=== PATIENT | female | born 1950 | race Caucasian/White ===

== ENCOUNTER → 2021-08-23 15:01 | Outpatient (BNVA) | payer MEDICARE, OTHER, SELFPAY | PROVIDERS: PCP Internal Medicine; Visit Provider Psychiatry & Neurology Neurology | DX: G47.33 Obstructive sleep apnea (adult) (pediatric) (principal); R41.89 Other symptoms and signs involving cognitive functions and awareness; Z99.89 Dependence on other enabling machines and devices | CPT/HCPCS: 99212 ==

== ENCOUNTER → 2021-11-03 11:42 | Outpatient (BNVA) | payer MEDICARE, OTHER, SELFPAY | PROVIDERS: PCP Internal Medicine; Visit Provider Psychiatry & Neurology Neurology | DX: G47.33 Obstructive sleep apnea (adult) (pediatric) (principal); R41.89 Other symptoms and signs involving cognitive functions and awareness; Z99.89 Dependence on other enabling machines and devices | CPT/HCPCS: 99212 ==

== ENCOUNTER → 2021-12-12 13:49 | Outpatient (BNVA) | payer MEDICARE, OTHER, SELFPAY | PROVIDERS: PCP Internal Medicine; Visit Provider Psychiatry & Neurology Neurology | DX: G47.33 Obstructive sleep apnea (adult) (pediatric) (principal); R41.89 Other symptoms and signs involving cognitive functions and awareness; Z99.89 Dependence on other enabling machines and devices | CPT/HCPCS: 99212 ==

== ENCOUNTER → 2022-03-16 10:29 | Outpatient (BNVA) | payer MEDICARE, OTHER, SELFPAY | PROVIDERS: PCP Internal Medicine; Visit Provider Nurse Practitioner Family | DX: G47.33 Obstructive sleep apnea (adult) (pediatric) (principal); R41.89 Other symptoms and signs involving cognitive functions and awareness; E66.9 Obesity, unspecified | CPT/HCPCS: 99212 ==

== ENCOUNTER → 2022-06-15 11:05 | Outpatient (BNVA) | payer MEDICARE, OTHER, SELFPAY | PROVIDERS: PCP Internal Medicine; Visit Provider Nurse Practitioner Family | DX: G47.33 Obstructive sleep apnea (adult) (pediatric) (principal) | CPT/HCPCS: 99212 ==

== ENCOUNTER 2023-06-17 11:10 | Outpatient (AMB) | payer MEDICARE, OTHER, SELFPAY ==
--- NOTE | 2023-06-17 11:12 | MHC.OFFVIS ---
Intake Vital Signs 06/17/23 11:26 Height 5 ft 2 in Weight 202 lb BMI 36.9 BP 140/80 H Blood Pressure Location Lt brachial Position Sitting Pulse 68 Pulse Source Pulse Oximeter Pulse Oximetry (%) 98 Oxygen Delivery Method Room Air Intake Visit Reasons: 1yr follow up sleep Intake Note: Patient presents for 1 year F/U. Wondering if I could have knew sleep study. When waking up with this new machine my mouth is very dry. Allergies Seasonal Allergies Allergy (Severe, Verified 06/17/23 11:19) coughing,sneezing congestion HPI HPI Comments History of Present Illness Details 71 y/o female patient presents for follow up of memory loss and JC on CPAP. The CPAP compliance and therapy response (03/15/23-06/12/23) reviewed. She has [employer]. She is on APAP [id number]. The usage days 100 % and the average usage hours 7 hrs 30 min. The max pressure was 18.8 and the residual AHI was 6.8/hr. Pt reports she sleeps better with CPAP for 7-8 hrs, denies daytime sleepiness. PFS Surgical History Hx of hysterectomy Hx of left breast biopsy Family History (Updated 06/17/23 @ 11:26 by Ethel Piña CMA) Father Asthma Allergy Alzheimer disease Mother Thyroid disease HTN (hypertension) Kidney disease Brother HTN (hypertension) Thyroid disease Asthma Social History Household Members: Spouse Alcohol intake: never Patient Tobacco Use Status: Never used Tobacco Review of Systems Const All systems reviewed & are unremarkable except as noted in HPI and below Physical Exam Vital Signs: Last Vital Signs Pulse 68 06/17/23 11:26 BP 140/80 H 06/17/23 11:26 Pulse Ox 98 06/17/23 11:26 Oxygen Delivery Method Room Air 06/17/23 11:26 BMI result Body Mass Index 36.9 Const General: cooperative Nutritional Appearance: obese Orientation/consciousness: patient oriented x3 Neuro General: patient oriented x3, gait normal, tone normal, moves all extremities and no focal motor deficits Gait exam (Neuro): Normal gait present Motor exam (neuro): 5/5 motor strength present throughout Assessment & Plan Assessment & Plan (1) Obstructive sleep apnea: Code(s): G47.33 - Obstructive sleep apnea (adult) (pediatric) Plan Continue to use APAP at 5-15yoT1H as patient experiences good clinical effects, sleep quality and daytime sleepiness has improved. Stressed compliance, use CPAP nightly and more than 4 hrs. Wt reduction advised. Coding Level of Care Code Est Pt Level 3 (13751) Diagnoses Obstructive sleep apnea G47.33
[2023-06-17 11:26] VITALS: BP 140/80; PULSE 68; O2SAT 98; BMI 36.9
== END 2023-06-17 11:45 | disposition home or self-care (01) ==
PROVIDERS: Visit Provider Nurse Practitioner Family
DX: G47.33 Obstructive sleep apnea (adult) (pediatric) (principal)
CPT/HCPCS: 99213

== ENCOUNTER → 2023-06-17 11:10 | Outpatient (BNVA) | payer MEDICARE, OTHER, SELFPAY | PROVIDERS: Visit Provider Nurse Practitioner Family | DX: G47.33 Obstructive sleep apnea (adult) (pediatric) (principal) | CPT/HCPCS: 99212 ==

== ENCOUNTER 2024-07-16 11:23 | Outpatient (AMB) | payer MEDICARE, OTHER, SELFPAY ==
--- NOTE | 2024-07-16 11:34 | A.OFFVIS_ITS ---
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 Pt reports she took a trip to [facility] in mid-June, where she and her came down with URI s/s. On return home, she had urgent care eval, and was treated with course of Amoxicillin. Since, however, she has not been able to shake the cough- having overall non-productive coughing fits that caused dizziness. Now feeling pressure in her face/sinuses when she coughs. Has needed to use her prn albuterol. Unfortunately since having this URI, she is not able to use her CPAP, as it is also triggering coughing fits. She is feeling much more tired. Notes, that she typically sleeps very well with CPAP and has good daytime energy with the use. She also notes, that she has not been able to lose weight, due to chronic back pain and knee pain as well as lower extremity discomfort. Also walking on a treadmill can make her feel disoriented and ddd-oplutja-[id number] her mother has similar symptoms. She has discussed trying GLP 1 antagonist treatment whether PCP, however per patient, her PCP did not feel that the risks outweigh the benefits. 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 She stopped ropinirole many years ago, as it was not helpful. She continues to have leg cramps at night. Also notes varicose veins, bruising, sore legs, BLE swelling. Notes family h/o muscle cramps. She tries to use mustard, OTC magnesium. Tried magnesium torate 2600mg per day (? 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 CPAP compliance report, April 12, 2019 14 June 2019 09/27/2024: [employer]. Overall usage 90 9% Usage greater than 4 hours 97% APAP 5-20 cm H2O Average pressure 15.2 cm H2O Residual AHI 5 0.5 cm H2O PFSH Surgical History Hx of left breast biopsy Hx of hysterectomy Family History Father Asthma Allergy Alzheimer disease Mother Thyroid disease HTN (hypertension) Kidney disease Brother HTN (hypertension) Thyroid disease Asthma Social History Household Members: Spouse Alcohol intake: never Patient Tobacco Use Status: Never used Tobacco Physical Exam Vital Signs: Last Vital Signs Pulse 85 07/16/24 11:35 BP 122/70 07/16/24 11:35 Pulse Ox 97 07/16/24 11:35 Oxygen Delivery Method Room Air 07/16/24 11:35 Const General: cooperative and no acute distress Orientation/consciousness: patient oriented x3 Resp Effort & Inspection: normal respiratory effort and able to speak in complete sentences Neuro General: patient oriented x3 Cranial nerves: Yes CN's II-XII intact bilaterally Cognition (Neuro): normal cognition Psych Appearance: grossly normal Mental Status: mental status grossly normal Speech and movement: Normal speech and movement present Affect: normal affect Attitude: cooperative Assessment & Plan Assessment & Plan (1) Obstructive sleep apnea: Code(s): G47.33 - Obstructive sleep apnea (adult) (pediatric) Category: Medical (2) Nocturnal muscle cramps: Code(s): R25.2 - Cramp and spasm Category: Medical (3) Cognitive changes: Code(s): R41.89 - Other symptoms and signs involving cognitive functions and awareness Category: Medical Plan For JC: Patient advised to call her archives technician, to further assess her chronic cough and sinus symptoms. When she is feeling better and her respiratory symptoms have subsided, resume APAP 5-20 cmH2O nightly > 4 hours, as patient typically has had good clinical effect from use. * Clean CPAP machine and supplies routinely. * Change CPAP supplies routinely. * Use distilled water in CPAP water reservoir. * Pt to contact us or respiratory company with any questions or concerns. For leg cramps: Will request vascular consult. There is limited data specifically regarding Magnesium Taurate for use in current predominant restless leg, however in the available studies, it does seem to be well tolerated without significant adverse effect. Patient has found this beneficial for her leg cramps, thus she may resume Magnesium Taurate. Encourage patient to slowly increase physical activity, she may benefit from water aerobics or resuming her previous PT exercises. For cognition: Resume PAP therapy as able. Increase regular physical activity. Continue to engage in regular social and cognitive stimulating activities. Continue to monitor Pt to follow-up in 6-12 months or sooner prn. Orders: Referrals Vascular Surgery Referral I83.93 - Asymptomatic varicose veins of bilateral lower extremities, M79.89 - Other specified soft tissue disorders, R25.2 - Cramp and spasm Coding Level of Care Code Est Pt Level 4 (61087) Diagnoses Obstructive sleep apnea G47.33 Nocturnal muscle cramps R25.2 Cognitive changes R41.89
[2024-07-16 11:35] VITALS: BP 122/70; PULSE 85; O2SAT 97
--- OUTSIDE RECORDS SUMMARY | 2024-07-16 12:53 | XMS_ITS | Clinical Summary ---
Author Organization [facility] Address [address] [place] [address] Care Team Providers Care Breaker Off Name Role Phone Kulwinder Santoyo Primary Care Provider Allergies Active Allergy Reactions Criticality Noted Date Comments Sulfa (Sulfonamide Antibiotics) Unknown 09/2022 Medications Lactobacillus acidophilus (Probiotic Acidophilus) 250 million cell capsule Take 1 capsule by mouth once a day. Active carboxymethylcell ulose sodium (REFRESH PLUS OPHTHALMIC) Instill 1 drop into affected eye(s) 4 times a day. Active cycloSPORINE (RESTASIS) 0.05% ophthalmic emulsion Instill 1 drop into both eyes every 12 hours. Active cetirizine (ZyrTEC) 10 mg tablet Take 10 mg by mouth once a day. Active ibuprofen (MOTRIN) 600 mg tablet Take 600 mg by mouth every 8 hours as needed for pain. Active albuterol (PROAIR HFA,VENTOLIN HFA) 90 mcg inhalerIndication s:Mild intermittent asthma without complication (HCC) Inhale 2 puffs (180 mcg total) by mouth every 4 hours as needed for wheezing or shortness of breath. Use with spacer. 26.8 g 4 Active losartan (COZAAR) 100 mg tablet Take 100 mg by mouth once a day. Active fluticasone propionate (FLONASE) 50 mcg/actuation nasal sprayIndications: Non-seasonal allergic rhinitis due to other allergic trigger Administer 2 sprays into each nostril once a day. 16 g 11 4 10/24/19 25 Active Active Problems Problem Noted Date Diagnosed Date Allergic rhinitis due to allergen 01/15/2023 Encounters Date Type Department Care Team Description 06/18/2024 10:15 AM EDT Clinical Support [facility] [address] Allergy/Immunology [address] [place] [address] Jennifer Lopez RN Allergic rhinitis due to tree pollen (Primary Dx); Allergic rhinitis due to weed pollen 06/15/2024 10:15 AM EDT Clinical Support [facility] [address] Allergy/Immunology [address] [place] [address] Princess Eckert RN Allergic rhinitis due to tree pollen (Primary Dx); Allergic rhinitis due to weed pollen 06/11/2024 10:45 AM EDT Clinical Support [address] Allergy/Immunology [address] [place] [phone] Jennifer Lopez RN Allergic rhinitis due to tree pollen (Primary Dx); Allergic rhinitis due to weed pollen 06/08/2024 10:15 AM EDT Clinical Support [address] Allergy/Immunology [address] [place] [id number] Jennifer Lopez RN Allergic rhinitis due to weed pollen (Primary Dx); Allergic rhinitis due to tree pollen 06/04/2024 10:15 AM EDT Clinical Support [address] Allergy/Immunology [address] [place] [phone] Jennifer Lopez RN Allergic rhinitis due to tree pollen (Primary Dx); Allergic rhinitis due to weed pollen from Last 3 Months Family History Medical History Relation Name Comments COPD Brother Sinusitis Brother Thyroid disease Brother Asthma Father COPD Father Diabetes Father Hyperlipidemia Father Allergic rhinitis Mother Food Allergies Mother Hypertension Mother Sinusitis Mother Thyroid disease Mother Relation Name Status Comments Brother Father Mother Social History Tobacco Use Types Packs/Day Years Used Date Smoking Tobacco: Never Passive Smoke Exposure: Never Smokeless Tobacco: Never Tobacco Cessation:Counseling Given: Not Answered Alcohol Use Standard Drinks/Week Comments Never 0 (1 standard drink = 0.6 oz pur e alcohol) Comments Unknown Sex and Gender Information Value Date Recorded Sex Assigned at Female 01/02/2023 2:59 PM EDT Legal Sex Female 10:59 AM EDT Gender Identity Female 01/02/2023 2:59 PM EDT Sexual Orientation Straight 01/15/2023 9: 51 PM EST Occupation Industry Job Start Date Job End Date Retired Not on file Not on file Not on file Last Filed Vital Signs Vital Sign Reading Time Taken Comments Blood Pressure 136/66 03/10/2024 10:06 AM EST Pulse 88 03/10/2024 10:06 AM EST Temperature - - Respiratory Rate 20 09/18/2023 1:28 PM EDT Oxygen Saturation 95% 06/18/2024 10: 20 AM EDT Inhaled Oxygen Concentration - - Weight 93.8 kg (206 lb 12.8 oz) 024 10:06 AM EST Height - - Body Mass Index - - Plan of Treatment Upcoming Encounters Date Type Department Care Team (Late st Contact Info) Description 09/08/2024 10:00 AM EDT Office Visit [address] Allergy/Immunology [address] [place] [address] Alma Kingston, [address] [place] [address] 10/12/2024 1:45 PM EDT Office Visit [facility] [address] [place] [phone] Dawna Mcdermott MD [address] [place] [phone] Health Maintenance Due Date Last Done Comments Cologuard 1952 Colon Cancer Screening 1952 Colonoscopy 1952 FOBT / Fit Test 1952 Hepatitis C Screening 1952 Sigmoidoscopy 1952 Medicare AWV 1953 Mammogram 1992 Osteoporosis Screening 2002 RSV Vaccine (60+ years old and patients) (1 - Risk 60-74 years 1-dose series) 2012 COVID-19 Vaccine (2023- season) 2023 08/28/2021, 01/04/2021, 12/10/2020, Additional history exists Alcohol/Substance Use Screening 03/11/2024 Depression Screening and Follow-Up 03/11/2024 Health Care Proxy Review 03/11/2024 Social Drivers of Health Annual Screening 03/11/2024 DTaP,Tdap,and Td Vaccines (2 - Td or Tdap) 02/25/2027 02/25/2017 Pneumococcal Vaccine: 50+ Years Completed 01/07/2019, 02/19/2018, 10/09/2012 Zoster Vaccines Completed 02/12/2020, 12/09/2019 Influenza Vaccine Completed 01/13/2024, , 01/04/2022, Additional history exists Hepatitis B Vaccines Aged Out No long er eligible based on patient's age to complete this topic Insurance MEDICARE [facility] [employer] Care Teams Breaker Off Relationship Specialty Start Date End Date Kulwinder Santoyo [facility] Adult Medicine [address] [place] [address] PCP - General Internal Medicine 01/02/23
--- OUTSIDE RECORDS SUMMARY | 2024-07-16 12:53 | XMS_ITS | Referral Summary ---
Author Organization [facility] Address [address] [place] [address] Care Team Providers Care Controls Design Engineer Name Role Phone Kulwinder Santoyo Primary Care Provider Encounters Date Type Department Care Team Description 06/18/2024 10:15 AM EDT Clinical Support [facility] [address] Allergy/Immunology [address] [place] [address] Jennifer Lopez RN Allergic rhinitis due to tree pollen (Primary Dx); Allergic rhinitis due to weed pollen 06/15/2024 10:15 AM EDT Clinical Support [facility] [address] Allergy/Immunology [address] [place] [address] Princess Eckert RN Allergic rhinitis due to tree pollen (Primary Dx); Allergic rhinitis due to weed pollen 06/11/2024 10:45 AM EDT Clinical Support [facility] [address] Allergy/Immunology [address] [place] [address] Jennifer Lopez RN Allergic rhinitis due to tree pollen (Primary Dx); Allergic rhinitis due to weed pollen 06/08/2024 10:15 AM EDT Clinical Support [facility] [address] Allergy/Immunology [address] [place] [address] Jennifer Lopez RN Allergic rhinitis due to weed pollen (Primary Dx); Allergic rhinitis due to tree pollen 06/04/2024 10:15 AM EDT Clinical Support [facility] [address] Allergy/Immunology [address] [place] [address] Jennifer Lopez RN Allergic rhinitis due to tree pollen (Primary Dx); Allergic rhinitis due to weed pollen from Last 3 Months Allergies Active Allergy Reactions Criticality Noted Date [...] a day. 16 g 11 4 10/24/19 Active Active Problems Problem Noted Date Diagnosed Date Allergic rhinitis due to allergen 01/15/2023 Social History Tobacco Use Types Packs/Day Years [...] - - Body Mass Index - - Functional Status * Are you deaf or do you have difficulty hearing? Answer Date of Assessment Author No 07/05/2023 2:50 PM EDT Zain Robles * Are you blind or do you have serious difficulty seeing, even when wearing glasses? Answer Date of Assessment Author No 07/05/2023 2:50 PM EDT Zain Robles * Do you have serious difficulty walking or climbing stairs? Answer Date of Assessment Author No 07/05/2023 2:50 PM EDT Zain Robles * Do you have difficulty dressing or bathing? Answer Date of Assessment Author No 07/05/2023 2:50 PM EDT Zain Robles * Because of a physical, mental, or emotional condition, do you have difficulty doing errands alone such as visiting a doctor's office or shopping? Answer Date of Assessment Author No 07/05/2023 2:50 PM EDT Zain Robles Mental Status * Because of a physical, mental, or emotional condition, do you have serious difficulty concentrating, remembering, or making decisions? Answer Entry Date Author No 07/05/2023 2:50 PM EDT Zain Robles Plan of Treatment Upcoming Encounters Date Type Department Care Team (Late st Contact Info) Description 09/08/2024 10:00 AM EDT Office Visit [address] Allergy/Immunology [address] [place] [address] Alma Kingston, DO [address] [place] [address] 10/12/2024 1:45 PM EDT Office Visit [facility] Clinic [address] [place] [address] Dawna Mcdermott MD [address] [place] [address] Insurance MEDICARE [facility] [employer] Care Teams Controls Design Engineer Relationship Specialty Start Date End Date Kulwinder Santoyo [facility] Adult Medicine [address] [place] [address] PCP - General Internal Medicine 01/02/23
--- OUTSIDE RECORDS SUMMARY | 2024-07-16 12:54 | XMS_ITS | Patient Health Record ---
Author Organization [facility] Address [address] [address] Care Team Providers Care Lens Cutter Name Role Phone Natanael THOMAS, [facility] Primary Care Provider Un available Letitia Chavez Unavailable [phone] Allergies Allergen (clinical drug ingredient) Drug/Non Drug Allergy documented on EMR Reaction Allergy Type Onset Date Status Seasonal IC Unknown Drug Allergy Activ e Dust Mites Unknown Allergy Active Reason For Referral No Information Medications Medication SIG (Take, Route, Frequency, Duration) Notes Start Date End Date Status Restasis Active albuterol Active Losartan Potassium 25 MG 1 tablet Orally Once a day for 30 day(s) Active Culturelle Probiotics Active Pepcid AC 10 MG 1 tablet as needed O rally Twice a day Active Refresh Plus Active Fluticasone Propionate 50 MCG/ACT 1 spray in each nostril Nasally Once a day for 30 day(s) Active Cetirizine HCl 10 MG 1 tablet Orally Onc e a day for 30 day(s) Active Immunizations Vaccine Route Administration Date Status Comme nts COVID-19 Pfizer BioNTech Vaccine Unknown 08/28/2021 Administered 3rd 01/04/2021 2nd 05/17/2020 1st 04/26/2020 Social History Tobacco Use: Social History Observation Description Date Details (start date - stop date) Never Smoker NA - NA Tobacco Use/Smoking Question Answer Notes Are you a: nonsmoker Alcohol Screen Question Answer Notes Did you have a drink containing alcohol in the p ast year? No Points 0 Interpretation Negative Tobacco use other than smoking: Question Answer Notes Are you an other tobacco user? No Problems Problem Type SNOMED Code ICD Code Onset Dates Problem Status W/U Status Risk Notes Problem 559991245 Hammer toe of right foot (M20.41) Active confirmed Problem 047829457 Hammer toe of le ft foot (M20.42) Active confirmed Problem 899273128928299 Osteoarthritis o f right ankle and foot (M19.071) Active confirmed Problem 06144811 Osteoarthritis o f left ankle and foot (M19.072) Active confirmed Plan Of Treatment Pending Test Test Name Order Date X ray : Foot, left 3V 03/15/2022 X ray : Foot, right 3V 03/15/2022 Insurance Providers Payer Name Payer Address Payer Phone Subscriber Number Group Number Insured Name Patient Relationship to Insured Coverage Start Date Coverage End Date Medicare National Govt Sv[employer] [address] [place] [phone] [id number] Stacey Farris Self - patient is the insured for Life [address] [place] [id number] Albert Farris Spouse - patient is the spouse of the insured Medical (General) History Medical History History ICD Code Back,Hip,and Knee pain High blood pressure Measles Mumps Chicken pox Surgical History Surgery Date(Month/Year) mri/brain 08/24/2021 cataract surgery left eye 11/29/2020 cataract surgery right eye 12/13/2020 heart stress test 11/24/2020 colonoscopy 06/15/2020 sleep study and C-pap monitoring 2018 knee left meniscus 2016 hysterectomy and sacrocolpopexy ( da mirta vi robot) 11/27/2013 Milk duct removal from left breast 1999 Breast biopsy 1977 Laparoscopy leep procedure tonsillectomy 1971
--- OUTSIDE RECORDS SUMMARY | 2024-07-16 12:54 | XMS_ITS | Continuity of Care Document ---
Author Organization [facility] [address] [place] [address] Phone [phone] Care Team Providers Care Elevator Supervisor Name Role Phone Kulwinder Santoyo M.D. Care Team Information Rehabilitation Coordinator [phone] Problems Active Problems Provider Date Hypercholesterolemia Freddie Johansen Onset: 03/01/2023 Endometriosis (clinical) Sara Jimenez M.D. Onset: 03/01/2023 Essential hypertension Bonita Johansen Onset: 03/01/2023 Obstructive sleep apnea syndrome Sara Balbuena M.D. Onset: 03/01/2023 Lichen sclerosus of vulva Sara Jimenez M.D. Onset: 03/01/2023 Osteoporosis Sara Jimenez M.D. Ons et: 03/01/2023 Keratoconjunctivitis sicca Saar murphy M.D. Onset: 03/01/2023 Obesity Sara Jimenez M.D. Ons et: 03/01/2023 Gout Sara Jimenez M.D. Ons et: 03/01/2023 Osteoarthritis of knee Bonita Johansen Onset: 03/01/2023 Bilateral trochanteric bursitis Sara Bill M.D. 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 Estradiol0.1mg/GM Cream 2 days a week (/Sat) Kareen Paris M.D. Clobetasol Propionate0.05% Ointment 2x week Alpesh Paris M.D. [id number] Tablets 1x in Am and 1x in PM Unknown Zyrtec [id number] Capsules 1x day PM Unknown Refresh Plus0.5% Solution 1x Am & 1xPM as needed Unknown Fluticasone Propionate Nasal [place] 24- Bvot14uol/Act Suspension 2 sprays each nostril every am as needed Unknown Restasis0.05% Emulsion 1 drop each eye twice daily Unknown Culturelle Pro-WellCapsules Unknown D3 [id number] (1000 Ut) Chewtabs Unknown Vital Signs Date Vital Result Comment 03/01/2023 10:27am BP Systolic 130 mmHg BP Diastolic 64 mmHg Medical Devices Description No Information Available Encounters Type Date Location Provider Dx Diagnosis Office Visit 03/01/2023 9:15a Main Office Sara Jimenez M.D. E06.3 Autoimmune thyroiditis R63.5 Abnormal weight gain E66.01 Morbid (severe) obes ity due to excess calories Assessments Date Code Description Provider 03/01/2023 E06.3 Autoimmune thyroiditis Hawa Jimenez M.D. 03/01/2023 R63.5 Abnormal weight gain Lawanda Jimenez M.D. 03/01/2023 E66.01 Morbid (severe) obesity due to excess calories Sara Jimenez M.D. Plan of Treatment No Information Available Functional Status Description No Information Available Mental Status Description No Information Available Referrals Description No Information Available
--- OUTSIDE RECORDS SUMMARY | 2024-07-16 12:54 | XMS_ITS ---
Author Organization [facility] Address [address] [address] Care Team Providers Care Patternmaker Grader Name Role Phone JACE THOMAS, BOB Primary Care Provider Un available Kareen Paris Unavailable [phone] Allergies Allergen (clinical drug ingredient) Drug/Non Drug Allergy documented on EMR Reaction Allergy Type Onset Date Status Substance with sulfonamide structure and antibacterial mechanism of action (substance) Sulfa Antibiotics Family Allergy Drug Allergy Active Results Component Value Reference Range Notes [id number] Reviewed date:12/25/2023 10:21:19 AM Interpretation: Performing Lab:[facility], [address] [facility], Phone - [phone], Director - Wyatt Notes/Report: TSH 2.370 0.450-4.500 uIU/mL Prolactin-[id number] Reviewed date:12/25/2023 08:17:00 AM Interpretation: Performing Lab:[facility], [address] [facility] [place], Phone - [phone], Director - Wyatt Notes/Report: Prolactin 6.7 3.6-25.2 ng/mL REASON FOR VISIT INTERVAL MED CK Medications Medication SIG (Take, Route, Frequency, Duration) Notes Start Date End Date Status ZyrTEC Active Losartan Potassium 100 MG 1 tablet Orall y Once a day Active Restasis 0.05 % 1 drop into affected eye Ophthalmic twice daily [place]-[facility] 07/17/2012 Active Estradiol Vaginal Cream 0.01% 1 Gram to the affected area Vulva Twice a week for 90 days 02/22/2023 Active Clobetasol Propionate 0.05 % 1 application to affected area Externally once a night for 30 days 12/28/2022 Active Fluticasone Propionate 50 MCG/ACT 1 spray in each nostril Nasally Twice a day Active Pepcid AC 10 MG 1 tablet as needed O rally Twice a day Active Culturelle Probiotics - as directed Orally Active Calcium + D3 Active Clotrimazole-Betamethasone 1-0.05 % 1 application to affected area Externally Twice a day for 14 days 12/24/2023 Active Estradiol 0.1 MG/GM 1 GRAM VAGINA AND VU LVA Two times a Week for 90 days 12/24/2023 Active Clobetasol Propionate 0.05 % 1 application to affected area Externally TWICE A WEEK for 90 days 12/24/2023 Active Social History Tobacco Use: Social History Observation Description Date Details (start date - stop date) Never Smoker NA - NA AUDIT-C (Standard) Question Answer Notes Did you have a drink containing alcohol in the p ast year? No Points 0 Interpretation Negative Tobacco Control (Standard) Question Answer Notes Tobacco use: Nonsmoker Vital Signs Temperature 97.6 degrees Fahrenheit 12/24/19 24 Blood pressure systolic 132 mm Hg 12/24/19 24 Blood pressure diastolic 68 mm Hg 024 Height 61.5 in 12/24/2023 Weight 200 lbs 12/24/2023 BMI 37.17 kg/m2 12/24/2023 Encounters Encounter Location Date Provider Diagnosis [address] [address] 12/24/2023 Kareen Paris Encounter for gynecological examination (general) (routine) with abnormal findings Z01.411 ; Encounter for screening mammogram for malignant neoplasm of breast Z12.31 ; Other specified disorders of bone density and structure, multiple sites M85.89 ; Lichen sclerosus et atrophicus L90.0 ; Atrophy of vulva N90.5 ; Candidiasis of skin and nail B37.2 and Nipple discharge N64.52 Assessments Encounter Date Diagnosis (ICD Code) Assessment Notes Treatment Notes Treatment Clinical Notes Section Notes 12/24/2023 Encounter for gynecological examination (general) (routine) with abnormal findings (ICD-10 - Z01.411) NO PAP TESTS. 12/24/2023 Encounter for screening mammogram for malignant neoplasm of breast (ICD-10 - Z12.31) REGULAR MAMMOGRAMS AND SBE'S WERE RECOMMENDED. 12/24/2023 Other specified disorders of bone density and structure, multiple sites (ICD-10 - M85.89) DISCUSSED OSTEOPENIA AND ITS IMPACT ON HER HEALTH. ADEQUATE CALCIUM AND VIT D. WEIGHT BEARING EXERCISES. REPEAT BMD IN 2023. 12/24/2023 Lichen sclerosus et atrophicus (ICD-10 - L90.0) DISCUSSED IMPROVEMENT IN VULVAR LESION. APPLY CLOBETASOL OINTMENT JUST TWICE WEEKLY. DETAILED INSTRUCTIONS WERE GIVEN. 12/24/2023 Atrophy of vulva (ICD-10 - N90.5) CONTINUE ESTRADIOL CREAM ALONG THE VULVA. DETAILED INSTRUCTIONS WERE GIVEN. 12/24/2023 Candidiasis of skin and nail (ICD-10 - B37.2) DISCUSSED FINDINGS, DX AND TX OPTIONS. KEEP AREA CLEAN AND DRY. ZEASORB POWDER/LOTRISONE CREAM WERE RECOMMENDED AND RX GIVEN. 12/24/2023 Nipple discharge (ICD-10 - N64.52) DISCUSSED IMPLICATIONS OF NIPPLE DISCHARGE. CHECK PROLACTIN AND TSH. AVOID NIPPLE STIMULATION. Plan Of Treatment Medication Medication Name Sig Start Date Stop Date Notes Clotrimazole-Betamethasone 1-0.05 % 1 application to affected area Externally Twice a day for 14 days 12/24/2023 Estradiol 0.1 MG/GM 1 GRAM VAGINA AND VU LVA Two times a Week for 90 days 12/24/2023 Clobetasol Propionate 0.05 % 1 applicati on to affected area Externally TWICE A WEEK for 90 days 12/24/2023 Treatment Notes Assessment Notes Encounter for gynecological examination (general) (routine) with abnormal findings NO PAP TESTS. Encounter for screening mamm ogram for malignant neoplasm of breast REGULAR MAMMOGRAMS AND SBE'S WERE RECOMMENDED. Other specified disorders of bone density and structure, multiple sites DISCUSSED OSTEOPENIA AND ITS IMPACT ON HER HEALTH. ADEQUATE CALCIUM AND VIT D. WEIGHT BEARING EXERCISES. REPEAT BMD IN 2023. Lichen sclerosus et atrophicus DISCUSSED IMPROVEMENT IN VULVAR LESION. APPLY CLOBETASOL OINTMENT JUST TWICE WEEKLY. DETAILED INSTRUCTIONS WERE GIVEN. Atrophy of vulva CONTINUE ESTRADIOL CREAM ALONG THE VULVA. DETAILED INSTRUCTIONS WERE GIVEN. Candidiasis of skin and nail DISCUSSED FINDINGS, DX AND TX OPTIONS. KEEP AREA CLEAN AND DRY. ZEASORB POWDER/LOTRISONE CREAM WERE RECOMMENDED AND RX GIVEN. Nipple discharge DISCUSSED IMPLICATIONS OF NIPPLE DISCHARGE. CHECK PROLACTIN AND TSH. AVOID NIPPLE STIMULATION. Next Appt Details Follow Up: 1 Year, Reason: Provider Name:Kareen pimentel, 12/30/2024 01:20:00 PM, [address] [facility], [address], [place], [address], Progress Notes * KRISTINE MURCIADOB:1950 (73 yo F)Acc No.[id number]:12/24/2023 Patient:?KRISTINE MURCIA Appointment Provider:?Kareen pimentel M.D. :1950???Age:73 Y???Sex:Female D ate:12/24/2023 Address:[address] [place], [place] [id number] Pcp:BOB MCCORMICK MD Subjective: * Chief Complaints: * ???INTERVAL MED CK * HPI: ???New/Follow-up Patient Consult:? S/P VAGINAL HYSTERECTOMY, BSO, SACROCOLPOPEXY. MIDURETHRAL SLING SURGERY PERFORMED BY DR HALL IN 2013.? SHE HAS DONE WELL. SHE WAS DIAGNOSED TO HAVE LICHEN SCLEROSUS IN 2022.? BIOPSY WAS DEFERRED AND SHE RESPONDED WELL TO TX USING CLOBETASOL OINTMENT 0.05%.? SHE IS PRESENTLY APPLYING THIS THRICE A WEEK. SHE USES ESTRADIOL CREAM TWICE WEEKLY FOR ATROPHIC VULVA. SHE C/P RIGHT NIPPLE WETNESS .? SHE HAS NOT NOTED ANY SPECIFIC NIPPLE DISCHARGE BUT HAS FOUND HER NIPPLE WET .? APPARENTLY A PAPILLOMA WAS REMOVED FROM THE CONTRALATERAL BREAST YEARS AGO. SHE ALSO C/O A RASH UNDER THE ABDOMINAL FOLDS ALONG THE LOWER ABDOMEN.?? HER LAST MAMMOGRAM DONE IN FEB 2023 SHOWED BREASTS ARE NOT DENSE AND WAS NORMAL. HER LAST PAP TEST IN 2013 WAS NEGATIVE.? SHE HAS NO HX OF ABNORMAL PAP TESTS. HER LAST BMD IN 2021 SHOWED THE LOWEST T-SCORE TO BE -2.0 AT THE SPINE.? FRAX=9%/1.2%.?? SHE HAD A COLONOSCOPY DONE IN 2020. PFIZER X 2. * ROS:?general:?no?chest pain.?no?palpitations.?no?headache.?no?cough.?no?shortness of breath.?no?fever.?no?unexplained weight loss.?no?nausea/vomiting.?no?change in bowel movements.?no blood in stool.?no?genitourinary complaints.?no?skin complaints.? * Medical History:? * Side Stapler History:?/ Para?2/2.?Sexual activity?not currently sexually active.?Last Pap Smear:?08/07/13.?Mammogram:?02/26/23 < 50% density, 02/19/22 < 50% density, 02/16/21 < 50% density, 02/11/20 < 50% density, 01/15/19 < 50% density, 12/12/17 < 50% density, 06/27/2016 normal, 11/05/14 < 50% density, 10/31/13, < 50% density.?LMP and menses?Hyst.? Control:?None.?Colonoscopy?2010.?Bone Density:?02/19/22, 02/11/20, 12/12/17, 10/18/2014.? * OB History:?Total pregnancies?2.?Total living children?2.?NVD?2.? * Surgical History:?Right Kristina st Biopsy Colonoscopy Colposcopy Leep Left Ductectomy Tonsillectomy Vaginal Hysterectomy/AP Adrian - Dr. Yung ladder Sling Bilateral Cataracts Surgery 2020 * Hospitalization/Major Diagno stic Procedure:?2 Vaginal Deliveries See Surgical Hx Overnight For Spider Bite 2014ER for Pain and Hypertension. Blood Pressure 221/104 Broken Left Leg * Family History:?Mother: alan stewart, well @ 91.?Father: 80 yrs, Alzhiemers Disease.?Maternal Grand Father: Colon Cancer.? * Social History:?Tobacco Use:?Tobacco Control (Standard)?Tobacco use:?Nonsmoker ???Sexual History:?Sexual History?Had sex in the past 12 months (vaginal, oral, or anal)?: No.?Details of Sexual History?Are you sexually active??No ???Drugs/Alcohol:?Drugs?Have you used drugs other than those for medical reasons in the past 12 months??No ???Miscellaneous:?Children: yes, 2. ?Domestic violence: no. ?Exercise: yes, walking. ?Home smoke detector use: yes. ?Living with: spouse. ?Marital status: . ?Natural support system: yes. ?Occupation: Works full-time. ?Sexual abuse: no. ?Sexually active: no, monogamous relationship. ?Verbal abuse: no. ???Drug/Alcohol:?AUDIT-C (Standard)?Did you have a drink containing alcohol in the past year??No ?Points?0 ?Interpretation?Negative * Medications:?TakingCalcium + D3 Culturelle Probiotics - Tablet Chewable as directed Orally Pepcid AC 10 MG Tablet 1 tablet as needed Orally Twice a day Fluticasone Propionate 50 MCG/ACT Suspension 1 spray in each nostril Nasally Twice a day Restasis 0.05 % Emulsion 1 drop into affected eye Ophthalmic twice daily , Notes to Pharmacist: [place]-MJLosartan Potassium 100 MG Tablet 1 tablet Orally Once a day ZyrTEC Clobetasol Propionate 0.05 % Ointment 1 application to affected area Externally once a night Estradiol Vaginal Cream 0.01% Cream 1 Gram to the affected area Vulva Twice a week Medication List reviewed and reconciled with the patientTaking Calcium + D3 Taking Culturelle Probiotics - Tablet Chewable as directed Orally Taking Pepcid AC 10 MG Tablet 1 tablet as needed Orally Twice a day Taking Fluticasone Propionate 50 MCG/ACT Suspension 1 spray in each nostril Nasally Twice a day Taking Restasis 0.05 % Emulsion 1 drop into affected eye Ophthalmic twice daily , Notes to Pharmacist: [place]-[facility]CE[facility] Losartan Potassium 100 MG Tablet 1 tablet Orally Once a day Taking ZyrTEC Taking Clobetasol Propionate 0.05 % Ointment 1 application to affected area Externally once a night Taking Estradiol Vaginal Cream 0.01% Cream 1 Gram to the affected area Vulva Twice a week Medication List reviewed and reconciled with the patient * Allergies:?Sulfa Antibiotics : Family Allergy - Allergyno[Allergies Verified] Objective: * Vitals:?Ht: 61.5 in, Wt: 200 lbs, BMI:37.17Index, BP: 132/68 mm Hg, Temp: 97.6 F. * Examination: ???General Examination: ?GENERAL APPEARANCE:?in no acute distress, well developed, well nourished.?SKIN:?rash under lower abdominal fold c/w intertrigo.?BREASTS:?normal, no dimpling, no discharge, no drainage, no masses palpable bilaterally, nontender.?SKETCH MAKER exam: ?EXTERNAL GENITALIA:?white thinned out areas have diminished,? less vulvar atrophy is noted..?VAGINA:?atrophic changes.?CERVIX:?surgically absent.?UTERUS:?surgically absent.?ADNEXA:?surgically absent.? Assessment: * Assessment: 1.?Encounter for gynecologic al examination (general) (routine) with abnormal findings - Z01.411 (Primary)???2.?Encounter for screening mammogram for malignant neoplasm of breast - Z12.31???3.?Other specified disorders of bone density and structure, multiple sites - M85.89???4.?Lichen sclerosus et atrophicus - L90.0???5.?Atrophy of vulva - N90.5???6.?Candidiasis of skin and nail - B37.2? ?7.?Nipple discharge - N64.52??? Plan: * Treatment: 2.?Encounter for screening m ammogram for malignant neoplasm of breast? Notes: REGULAR MAMMOGRAMS AND SBE'S WERE RECOMMENDED.?? 3.?Other specified disorders of bone density and structure, multiple sites? Notes: DISCUSSED OSTEOPENIA AND ITS IMPACT ON HER HEALTH. ADEQUATE CALCIUM AND VIT D. WEIGHT BEARING EXERCISES. REPEAT BMD IN 2023.?? 4.?Lichen sclerosus et atrop hicus? Start Clobetasol Propionate Ointment, 0.05 %, 1 application to affected area, Externally, TWICE A WEEK, 90 days, 45 Gram, Refills 2.?? Notes: DISCUSSED IMPROVEMENT IN VULVAR LESION. APPLY CLOBETASOL OINTMENT JUST TWICE WEEKLY. DETAILED INSTRUCTIONS WERE GIVEN.?? 5.?Atrophy of vulva? Start Estradiol Cream, 0.1 MG/GM, 1 GRAM, VAGINA AND VULVA, Two times a Week, 90 days, 42.5 Gram, Refills 3.?? Notes: CONTINUE ESTRADIOL CREAM ALONG THE VULVA. DETAILED INSTRUCTIONS WERE GIVEN.?? 6.?Candidiasis of skin and n ail? Start Clotrimazole-Betamethasone Cream, 1-0.05 %, 1 application to affected area, Externally, Twice a day, 14 days, 45 Gram, Refills 4.?? Notes: DISCUSSED FINDINGS, DX AND TX OPTIONS. KEEP AREA CLEAN AND DRY. ZEASORB POWDER/LOTRISONE CREAM WERE RECOMMENDED AND RX GIVEN.?? 7.?Nipple discharge?LAB: [id number] ?LAB: [id number] Notes: DISCUSSED IMPLICATIONS OF NIPPLE DISCHARGE. CHECK PROLACTIN AND TSH. AVOID NIPPLE STIMULATION.?? * Procedure Codes:? * Follow Up:?1 Year * Images: Billing Information: * Visit Code:? * Procedure Codes:? * Sign off status: Completed true * Appointment Provider:?Kareen Paris M.D. Date:?12/24/2023 Generated for Luis Manuel monreal/Lisbet/Altheaitting on:?07/16/2024 12:53 PM EDT History and Physical Notes * HPI (History of Present Illness) Category Sub-Category Detail Notes Category Not es New/Follow-up Patient Consult S/P VAGINAL HYSTERECTOMY, BSO, SACROCOLPOPEXY. MIDURETHRAL SLING SURGERY PERFORMED BY DR HALL IN 2013. SHE HAS DONE WELL. SHE WAS DIAGNOSED TO HAVE LICHEN SCLEROSUS IN 2022. BIOPSY WAS DEFERRED AND SHE RESPONDED WELL TO TX USING CLOBETASOL OINTMENT 0.05%. SHE IS PRESENTLY APPLYING THIS THRICE A WEEK. SHE USES ESTRADIOL CREAM TWICE WEEKLY FOR ATROPHIC VULVA. SHE C/P RIGHT NIPPLE WETNESS . SHE HAS NOT NOTED ANY SPECIFIC NIPPLE DISCHARGE BUT HAS FOUND HER NIPPLE WET . APPARENTLY A PAPILLOMA WAS REMOVED FROM THE CONTRALATERAL BREAST YEARS AGO. SHE ALSO C/O A RASH UNDER THE ABDOMINAL FOLDS ALONG THE LOWER ABDOMEN. HER LAST MAMMOGRAM DONE IN FEB 2023 SHOWED BREASTS ARE NOT DENSE AND WAS NORMAL. HER LAST PAP TEST IN 2013 WAS NEGATIVE. SHE HAS NO HX OF ABNORMAL PAP TESTS. HER LAST BMD IN 2021 SHOWED THE LOWEST T-SCORE TO BE -2.0 AT THE [facility]. FRAX=9%/1.2%. SHE HAD A COLONOSCOPY DONE IN 2020. PFIZER X 2. Examination Category Sub-Category Detail Notes Category Not es General Examination GENERAL APPEARANCE: in no ac [place] distress, well developed, well nourished SKIN: rash under lower abd ominal fold c/w intertrigo BREASTS: normal, no dimpling, no discharge, no drainage, no masses palpable bilaterally, nontender SKETCH MAKER exam CERVIX: surgically absent VAGINA: atrophic changes EXTERNAL GENITALIA: white thinned out ar eas have diminished, less vulvar atrophy is noted. UTERUS: surgically absent ADNEXA: surgically absent
--- OUTSIDE RECORDS SUMMARY | 2024-07-16 12:54 | XMS_ITS | Clinical Summary ---
Author Organization [employer] [facility] [employer] Address [address] [address] Care Team Providers Care Recreation Specialist Name Role Phone Kulwinder Santoyo MD Primary Care Provider [phone] Allergies No known active allergies Medications rOPINIRole (REQUIP) 0.25 MG tablet TK 1 T PO Q EVENING. JULY TK ANOTHER TABLET UTD 2 02/21/2018 Active losartan (COZAAR) 25 MG tablet TK 1 T PO D 1 04/05/2018 Active dicyclomine (BENTYL) 10 MG capsule TK 1 C PO QID 3 02/25/2018 Active alendronate (FOSAMAX) 70 MG tablet 1 04/09/2018 Active cycloSPORINE (RESTASIS) 0.05 % ophthalmic emulsion 1 drop 2 (two) times a day. Active aspirin 81 MG tablet Take 81 mg by mouth daily. Active Social History Tobacco Use Types Packs/Day Years Used Date Smoking Tobacco: Never Smokeless Tobacco: Never Comments Unknown Sex and Gender Information Value Date Recorded Sex Assigned at Not on file Legal Sex Female 3:34 PM EST Gender Identity Not on file Sexual Orientation Not on file Last Filed Vital Signs Vital Sign Reading Time Taken Comments Blood Pressure 130/66 05/06/2018 3:58 PM EST Pulse 98 05/06/2018 3:58 PM EST Temperature 37.1 ??C (98.8 ??F) 05/06/2018 3:58 PM ES T Respiratory Rate 18 05/06/2018 3:58 PM EST Oxygen Saturation 98% 05/06/2018 3:58 PM EST Inhaled Oxygen Concentration - - Weight - - Height - - Body Mass Index - - Plan of Treatment Health Maintenance Due Date Last Done Comments Colorectal Cancer: COLONOSCO PY Screening every 10 yrs (or Modifier) 1950 Depression: Screening Annual ly using PHQ-2/9 in Adults 18 yrs or above (or HM Modifier)([facility]) 1950 Hepatitis C Virus Infection in Adolescents and Adults: Screening (or Modifier) ([facility]) 1970 SDUT Screening Reminder: Melissa chau for all adults ([facility]) 1970 Tobacco Smoking Cessation: i n Adults excluding Women: Behavioral and Pharmacotherapy Interventions ([facility]) 1970 DTaP/Tdap/Td Vaccines ([facility]) (1 - Tdap) 12/01/1971 Colorectal Cancer Screening 45 -75 Yrs (or HM Modifier ) 1997 Colorectal Cancer: FLEXIBLE SIGMOIDOSCOPY Screening every 5 yrs 1997 Colorectal Cancer: Fecal Imm unochemical Test (FIT) Annually [facility] 1997 Colorectal Cancer: High-sens itivity gFOBT Screening Annually [facility] 1997 Colorectal Cancer: Stool Col oguard Screening every 3 yrs 1997 Colorectal Cancer:CT Colonography Screening every 5 yr s 1997 Lipid Screening: Every 5 yrs for Women aged 45+ (or HM Modifier) ([facility]) 1998 Breast Cancer: Screening Melissa chau age 50-74 yrs (or HM Modifier)([facility]) 2002 Pneumococcal Vaccination Scr eening: Patients 50+ yrs of age ([facility]) (1 of 1 - PCV) 2002 Zoster/Shingles Vaccine Seri es Screening: Adults aged 18+ yrs (or HM Modifiers)([facility]) (1 of 2) 2002 Osteoporosis Screening to Pr event Fractures: Women aged 65 years+ ([facility]) 2017 COVID-19 Vaccine Screening: Initial Series and Booster Status ([facility]) ( - 2023- season) 2023 Flu Vaccination: Ages 65+: Y early High Dose Recommended (or Modifier)([facility]) 10/09/2024 RSV Vaccines (1 - 1-dose 75+ series) 12/01/2027 Medical Devices Not on file Insurance MEDICARE Care Teams Recreation Specialist Relationship Specialty Start Date End Date Kulwinder Santoyo MD [address] [place] [address] PCP - Peer Specialist 05/06/18
--- OUTSIDE RECORDS SUMMARY | 2024-07-16 12:54 | XMS_ITS ---
Author Organization [employer] [facility] Address [address] [place] [address] Care Team Providers Care Riveter Name Role Phone JACE THOMAS, BOB Primary Care Provider Un available Kareen Paris Unavailable [phone] REASON FOR VISIT INTERVAL VISIT Encounters Encounter Location Date Provider Diagnosis [facility] [address] [place] [address] 12/12/2023 Kareen Paris Plan Of Treatment Next Appt Details Provider Name:Kareen pimentel, 12/30/2024 01:20:00 PM, [address], [address], [place], [address], Progress Notes * DIVINA KRISTINEDOB:1950 (73 yo F)Acc No.[id number]:12/12/2023 PROGRESS NOTES Patient:?KRISTINE MURCIA Appointment Provider:?Kareen pimentel M.D. :1950???Age:73 Y???Sex:Female D ate:12/12/2023 Address:[address] [place], [place] [id number] Pcp:BOB MCCORMICK MD Subjective: * Chief Complaints: * ???1. INTERVAL VISIT. * Medical History:? Objective: * Vitals:? Assessment: Plan: * Treatment: * Images: Billing Information: * Visit Code:? * Procedure Codes:? * Electronic signature of Ban Paris MD on 07/16/2024 at 12:54 PM EDT Sign off status: Pending * Appointment Provider:?Kareen Paris M.D. Date:?12/12/2023 Generated for Luis Manuel monreal/Lisbet/Sarah on:?07/16/2024 12:54 PM EDT
--- OUTSIDE RECORDS SUMMARY | 2024-07-16 12:54 | XMS_ITS | Patient Health Record ---
Author Organization [facility] Address [address] [facility] [address] [place] [address] Care Team Providers Care Engraver Lettering Name Role Phone JACE THOMAS, BEREOHIO VALLEY HOSPITALIesha Primary Care Provider Un available Kareen Paris Unavailable [phone] Allergies Allergen (clinical drug ingredient) Drug/Non Drug Allergy documented on EMR Reaction Allergy Type Onset Date Status Substance with sulfonamide structure and antibacterial mechanism of action (substance) Sulfa Antibiotics Family Allergy Drug Allergy Active Results Component Value Reference Range Notes [id number] Reviewed date:12/25/2023 10:21:19 AM Interpretation: Performing Lab:[facility], [address] [facility], Phone - [phone], Director - Elishadrtoshia Notes/Report: TSH 2.370 0.450-4.500 uIU/mL Prolactin-[id number] Reviewed date:12/25/2023 08:17:00 AM Interpretation: Performing Lab:[facility] [place], [facility] [place], Phone - [phone], Director - MDJodry Notes/Report: Prolactin 6.7 3.6-25.2 ng/mL PDF Report Reviewed date:12/25/2023 08:16:50 AM Interpretation: Performing Lab:[facility], [address] [facility], [place], Phone - [phone], Director - MDJodry Notes/Report: Reason For Referral No Information Medications Medication SIG (Take, Route, Frequency, Duration) Notes Start Date End Date Status ZyrTEC Active Losartan Potassium 100 MG 1 tablet Orall y Once a day Active Restasis 0.05 % 1 drop into affected eye Ophthalmic twice daily [place] 07/17/2012 Active Fluticasone Propionate 50 MCG/ACT 1 spray in each nostril Nasally Twice a day Active Estradiol 0.1 MG/GM 1 GRAM VAGINA AND VU LVA Two times a Week for 90 days Active Pepcid AC 10 MG 1 tablet as needed O rally Twice a day Active Culturelle Probiotics - as directed Orally Active Calcium + D3 Active Clotrimazole-Betamethasone 1-0.05 % 1 application to affected area Externally Twice a day for 14 days 12/24/2023 Active Estradiol Vaginal Cream 0.01% 1 Gram to the affected area Vulva Twice a week for 90 days 02/22/2023 Active Clobetasol Propionate 0.05 % 1 application to affected area Externally once a night for 30 days 12/28/2022 Active Clobetasol Propionate 0.05 % 1 application [...] (Standard) Question Answer Notes Tobacco use: Nonsmoker Problems Problem Type SNOMED Code ICD Code Onset Dates Problem Status W/U Status Risk Notes Problem Postmenopausal atrophic vaginitis (88650653) Postmenopausal atrophic vaginitis (N95.2) Active confirmed Problem Age-related osteoporosis (730790542) Age-related osteoporosis without current pathological fracture (M81.0) Active confirmed Problem Morbid obesity (disorder) (796033542) Morbid (severe) obesity due to excess calories (E66.01) Active confirmed Problem Localized morphea (624233152) Lichen sclerosus et atrophicus (L90.0) Active confirmed Problem Atrophy of vulva (110348744) Atrophy of vulva (N90.5) Active confirmed Problem Benign neoplasm of vulva (95447147) Benign neoplasm of vulva (221.2) Active confirmed Major Problem Tear film insufficiency (45103894) Unspecified tear film insufficiency (375.15) Active confirmed Diag Problem Benign essential hypertension (3403860) Essential hypertension, benign (401.1) Active confirmed Major Problem Midline cystocele (390116248) Cystocele without mention of uterine prolapse, midline (618.01) Active confirmed Diag Problem Herniation of rectum into vagina (811295895) Rectocele without mention of uterine prolapse (618.04) Active confirmed Diag Problem Uterine prolapse without vaginal wall prolapse (66641536) Uterine prolapse without mention of vaginal wall prolapse (618.1) Active confirmed Diag Problem Dysplasia of cervix (91998805) Dysplasia of cervix, unspecified (622.10) Active confirmed Diag Problem Osteoporosis (62301297) Unspecified osteoporosis (733.00) Active confirmed Diag Problem Senile osteoporosis (33949874) Senile osteoporosis (733.01) Active confirmed Major Problem Gynecological examination normal (575924879650830) Routine gynecological examination (V72.31) Active confirmed Major Problem Screening for malignant neoplasm of colon (208024810) Special screening for malignant neoplasms, colon (V76.51) Active confirmed Major Vital Signs Temperature 97.6 degrees Fahrenheit 12/24/2023 Blood pressure diastolic 68 mm Hg 12/24/2023 Height 61.5 in 12/24/2023 Blood pressure systolic 132 mm Hg 12/24/2023 Weight 200 lbs 12/24/2023 BMI 37.17 kg/m2 12/24/2023 Encounters Encounter Location Date Provider Diagnosis [address] [place] [address] 12/24/2023 Kareen Paris Encounter for gynecological examination [...] TSH. AVOID NIPPLE STIMULATION. Plan Of Treatment Pending Test Test Name Order Date MAMMOGRAM, SCREENING 09/15/2014 MAMMOGRAM, SCREENING 11/07/2016 MAMMOGRAM, SCREENING 11/28/2020 MAMMOGRAM, SCREENING 12/07/2022 MAMMOGRAM, SCREENING 12/01/2021 Bone Density 09/15/2014 Urine Culture and Sensitivity 09/15/2014 Urinalysis 09/15/2014 Urinalysis 11/07/2016 Urinalysis 11/14/2017 URINE CULTURE 09/15/2014 BONE DENSITY 12/01/2021 BONE DENSITY 02/11/2020 BONE DENSITY 11/07/2015 MM Digital Mammo Screening 11/24/2019 MM Digital Mammo Screening 11/28/2020 MM Digital Mammo Screening 11/07/2016 MM Digital Mammo Screening 12/01/2021 MM Digital Mammo Screening 12/07/2022 Next Appt Details Provider Name:Kareen Zain pimentel, 12/30/2024 01:20:00 PM, [address], [address], [place], [address], Insurance Providers Payer Name Payer Address Payer Phone Subscriber Number Group Number Insured Name Patient Relationship to Insured Coverage Start Date Coverage End Date MEDICARE [address] [place] [id number] [phone] [id number] KRISTINE MURCIA Self - patient is the insured [employer] FOR LIFE [address] [place] [address] [phone] [id number] ANGELINA MURCIA Spouse - patient is the spouse of the insured Medical (General) History Medical History History ICD Code Dysplasia of cervix uteri, unspecified N 87.9 Dry eye syndrome of unspecified lacrimal gland H04.129 Age-related osteoporosis without current pathological fracture M81.0 Cystocele, unspecified N81.10 Rectocele N81.6 Incomplete uterovaginal prolapse N81.2 Essential (primary) hypertension I10 Benign neoplasm of vulva D28.0 Sleep Apnea Postmenopausal atrophic vaginitis N95.2 Morbid (severe) obesity due to excess ca lories E66.01 Lichen sclerosus et atrophicus L90.0 Atrophy of vulva N90.5 Surgical History Surgery Date(Month/Year) Right Breast Biopsy Colonoscopy Colposcopy Leep Left Ductectomy Tonsillectomy Vaginal Hysterectomy/AP [facility] - Dr. Kirk moncada 11/2013 Bladder Sling Bilateral Cataracts Surgery 2020 Hospitalization History Reason Date(Month/Year) Broken Left Leg ER for Pain and Hypertension. Blood Pres sure 221/104 Overnight For Spider Bite 2013 See Surgical Hx 2 Vaginal Deliveries
--- OUTSIDE RECORDS SUMMARY | 2024-07-16 12:54 | XMS_ITS ---
Author Organization [facility] Address [address] [place] [address] Care Team Providers Care Smearer Name Role Phone JACE THOMAS, BOB Primary Care Provider Un available Kareen Paris Unavailable [phone] Allergies Allergen (clinical drug ingredient) Drug/Non Drug Allergy documented on EMR Reaction Allergy Type Onset Date Status Substance with sulfonamide structure and antibacterial mechanism of action (substance) Sulfa Antibiotics Family Allergy Drug Allergy Active REASON FOR VISIT MEDICATION FOLLOW UP Medications Medication SIG (Take, Route, Frequency, Duration) Notes Start Date End Date Status Losartan Potassium 100 MG 1 tablet Orall y Once a day Active ZyrTEC Active Estradiol Vaginal Cream 0.01% 1 Gram to the affected area Vulva Twice a week for 90 days 02/22/2023 Active Clobetasol Propionate 0.05 % 1 application to affected area Externally once a night for 30 days 12/28/2022 Active Culturelle Probiotics - as directed Orally Active Pepcid AC 10 MG 1 tablet as needed O rally Twice a day Active Fluticasone Propionate 50 MCG/ACT 1 spray in each nostril Nasally Twice a day Active Restasis 0.05 % 1 drop into affected eye Ophthalmic twice daily [facility] 07/17/2012 Active Vital Signs Temperature 97.7 degrees Fahrenheit 05/22/19 24 Blood pressure systolic 134 mm Hg 05/22/19 24 Blood pressure diastolic 70 mm Hg 024 Height 61.5 in 05/22/2023 Weight 199 lbs 05/22/2023 BMI 36.99 kg/m2 05/22/2023 Encounters Encounter Location Date Provider Diagnosis [facility] [address] [facility] [address] [place] [address] 05/22/2023 Kareen Paris Lichen sclerosus et atrophicus L90.0 and Atrophy of vulva N90.5 Assessments Encounter Date Diagnosis (ICD Code) Assessment Notes Treatment Notes Treatment Clinical Notes Section Notes 05/22/2023 Lichen sclerosus et atrophicus (ICD-10 - L90.0) DISCUSSED AND SHOWED PAT MARKED IMPROVEMENT USING A HAND MIRROR. CONTINUE APPLYING CLOBETASOL OINTMENT TWICE WEEKLY. DETAILED INSTRUCTIONS WERE GIVEN. USE ONLY A THIN FILM. 05/22/2023 Atrophy of vulva (ICD-10 - N90.5) CONTINUE APPLYING ESTRADIOL CREAM TO VULVA TWICE WEEKLY. Plan Of Treatment Treatment Notes Assessment Notes Lichen sclerosus et atrophicus DISCUSSED AND SHOWED PAT MARKED IMPROVEMENT USING A HAND MIRROR. CONTINUE APPLYING CLOBETASOL OINTMENT TWICE WEEKLY. DETAILED INSTRUCTIONS WERE GIVEN. USE ONLY A THIN FILM. Atrophy of vulva CONTINUE APPLYING ES TRADIOL CREAM TO VULVA TWICE WEEKLY. Next Appt Details Follow Up: NOV 2023 OR PRN, Reason: Provider Name:Kareen pimentel, 12/30/2024 01:20:00 PM, [address] [place] [address], [address], [place], [address], Progress Notes * KRISTINE MURCIADOB:1950 (72 yo F)Acc No.[id number]:05/22/2023 Patient:?KRISTINE MURCIA Appointment Provider:?Kareen pimentel M.D. :1950???Age:72 Y???Sex:Female D ate:05/22/2023 Address:[address] [place], [place] [id number] Pcp:BOB MCCORMICK MD Subjective: * Chief Complaints: * ???MEDICATION FOLLOW UP * HPI: ???New/Follow-up Patient Consult:? MICHOACANO WAS DIAGNOSED TO HAVE LICHEN SCLEROSUS IN DEC 2022 DURING A ROUTINE EXAM. BIOPSY WAS DEFERRED. SHE WAS TREATED WITH CLOBETASOL OINTMENT 0.05% AND SHE RESPONDED WELL. ON HER LAST VISIT IN FEB 2023, SHE WAS ADVISED TO APPLY THE MEDICATION TWICE WEEKLY HER MAINTENANCE DOSE. SHE WAS ALSO ADVISED TO APPLY ESTRADIOL CREAM TO VULVA DUE TO VULVAR ATROPHY. SHE IS HERE FOR A FOLLOW UP VISIT. * ROS:?general:?no?chest pain.?no?palpitations.?no?headache.?no?cough.?no?shortness of breath.?no?fever.?no?unexplained weight loss.?no?nausea/vomiting.?no?change in bowel movements.?no blood in stool.?no?genitourinary complaints.?no?skin complaints.? * Medical History:? 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 Blood Pressure 221/104 * Family History:?Mother: alan stewart, well @ 91.?Father: 80 yrs, Alzhiemers Disease.?Maternal Grand Father: Colon Cancer.? * Social History:?Tobacco Use:?Tobacco Use/Smoking?Are you a: nonsmoker.?Sexual History:?Sexual History?Had sex in the past 12 months (vaginal, oral, or anal)?: No.?Details of Sexual History?Are you sexually active??No ???Drugs/Alcohol:?Drugs?Have you used drugs other than those for medical reasons in the past 12 months??No ?Alcohol Screen (Audit-C)?Did you have a drink containing alcohol in the past year?: No, Points: 0, Interpretation: Negative.?Miscellaneous:?Children: yes, 2. ?no Domestic violence. ?Exercise: yes, walking. ?Home smoke detector use: yes. ?Living with: spouse. ?Marital status: . ?Natural support system: yes. ?Occupation: Works full-time. ?no Sexual abuse. ?no Sexually active, monogamous relationship. ?no Verbal abuse. * Medications:?TakingCulturell e Probiotics - Tablet Chewable as directed Orally Pepcid AC 10 MG Tablet 1 tablet as needed Orally Twice a dayFluticasone Propionate 50 MCG/ACT Suspension 1 spray in each nostril Nasally Twice a dayRestasis 0.05 % Emulsion 1 drop into affected eye Ophthalmic twice daily, Notes: [place]-[facility]JLosartan Potassium 100 MG Tablet 1 tablet Orally Once a dayZyrTEC Clobetasol Propionate 0.05 % Ointment 1 application to affected area Externally once a nightEstradiol Vaginal Cream 0.01% Cream 1 Gram to the affected area Vulva Twice a weekTaking Culturelle Probiotics - Tablet Chewable as directed Orally Taking Pepcid AC 10 MG Tablet 1 tablet as needed Orally Twice a dayTaking Fluticasone Propionate 50 MCG/ACT Suspension 1 spray in each nostril Nasally Twice a dayTaking Restasis 0.05 % Emulsion 1 drop into affected eye Ophthalmic twice daily, Notes: [place]-MJTaking Losartan Potassium 100 MG Tablet 1 tablet Orally Once a dayTaking ZyrTEC Taking Clobetasol Propionate 0.05 % Ointment 1 application to affected area Externally once a nightTaking Estradiol Vaginal Cream 0.01% Cream 1 Gram to the affected area Vulva Twice a weekDiscontinuedmethylPREDNISolone 4 MG Tablet Therapy Pack Oral Medication List reviewed and reconciled with the patientDiscontinued methylPREDNISolone 4 MG Tablet Therapy Pack Oral Medication List reviewed and reconciled with the patient * Allergies:?Sulfa Antibiotics : Family Allergy - Allergyno[Allergies Verified] Objective: * Vitals:?Ht: 61.5 in, Wt: 199 lbs, BMI:36.99 Index, BP: 134/70 mm Hg, Temp: 97.7 F. * Examination: ???Gynecological: ?EXTERNAL GENITALIA:? LESIONS HAVE ALMOST ALL RESOLVED, VULVAR ATROPHPY HAS ALSO DIMINISHED..? Assessment: * Assessment: 1.?Lichen sclerosus et atrop hicus - L90.0 (Primary)?2.?Atrophy of vulva - N90.5? Plan: * Treatment: 2.?Atrophy of vulva? Notes: CONTINUE APPLYING ESTRADIOL CREAM TO VULVA TWICE WEEKLY.?? * Procedure Codes:? * Follow Up:?NOV 2023 OR PRN * Images: Billing Information: * Visit Code:? * Procedure Codes:? * Sign off status: Completed true * Appointment Provider:?Kareen Paris M.D. Date:?05/22/2023 Generated for Luis Manuel monreal/Lisbet/Sarah on:?07/16/2024 12:54 PM EDT History and Physical Notes * HPI (History of Present Illness) Category Sub-Category Detail Notes Category Not es New/Follow-up Patient Consult PAT WAS DIAGNOSED TO HAVE LICHEN SCLEROSUS IN DEC 2022 DURING A ROUTINE EXAM. BIOPSY WAS DEFERRED. SHE WAS TREATED WITH CLOBETASOL OINTMENT 0.05% AND SHE RESPONDED WELL. ON HER LAST VISIT IN FEB 2023, SHE WAS ADVISED TO APPLY THE MEDICATION TWICE WEEKLY HER MAINTENANCE DOSE. SHE WAS ALSO ADVISED TO APPLY ESTRADIOL CREAM TO VULVA DUE TO VULVAR ATROPHY. SHE IS HERE FOR A FOLLOW UP VISIT. Examination Category Sub-Category Detail Notes Category Not es Gynecological EXTERNAL GENITALIA: LESIONS HAVE ALMOST ALL RESOLVED, VULVAR ATROPHPY HAS ALSO DIMINISHED.
== END 2024-07-16 12:44 | disposition home or self-care (01) ==
LOC: HO.HSMS 11:24
PROVIDERS: PCP Internal Medicine; Visit Provider Nurse Practitioner Family
DX: G47.33 Obstructive sleep apnea (adult) (pediatric) (principal); R25.2 Cramp and spasm; R41.89 Other symptoms and signs involving cognitive functions and awareness
CPT/HCPCS: 99214

== ENCOUNTER → 2024-07-16 11:23 | Outpatient (BNVA) | payer MEDICARE, OTHER, SELFPAY | PROVIDERS: PCP Internal Medicine; Visit Provider Nurse Practitioner Family | DX: G47.33 Obstructive sleep apnea (adult) (pediatric) (principal); R25.2 Cramp and spasm; R41.89 Other symptoms and signs involving cognitive functions and awareness | CPT/HCPCS: 99212 ==